=== PATIENT | female | born 1940 | race Caucasian/White ===

== ENCOUNTER 2019-02-07 10:52 | Emergency (ER) | payer MEDICARE, MEDICAID ==
[2019-02-07] MEDS ORDERED: Sodium Chloride 0.9% 1,000 ML IV ONE (11:55)
[2019-02-07] MEDS ORDERED: Sodium Chloride 0.9% 10 ML Syringe FLUSH PRN (11:55)
[2019-02-07] MEDS ORDERED: Iopamidol 612 MG/ML 100 ML Bottle IVPUSH ONE (12:03)
--- NOTE | 2019-02-07 12:40 | EDM.PDOC ---
ED HPI GENERAL MEDICAL PROBLEM - General Chief Complaint: Abdominal Pain Stated Complaint: abd pain, nausea Time Seen by Provider: 02/07/19 11:00 Source of Information: Reports: Patient History Limitations: Reports: No Limitations - History of Present Illness INITIAL COMMENTS - FREE TEXT/NARRATIVE: Pt. presents to ER with RLQ abdominal pain. Pt. states that the discomfort started yesterday. She states that she is nauseated and vomited yesterday. She states that the discomfort is intermittent. Denies any fever or chills that she is aware of. Pt. states that she has all of her abdominal organs. Denies any history of appendicitis. Pt. states that he has been lightheaded for the past several weeks and has seen Dr. Mcguire for this. Pt. states that she adjusted her antihypertensive medications. On arrival to ED, pt. reports that the pain is absent if she is still, but complains of pain with palpation and when she is ambulating. Pt. denies any fever or chills. No chest pain, cough, or shortness of breath. Denies any dysuria. Denies any vaginal bleeding or discharge. Onset Date: 02/06/19 Location: Reports: Abdomen, Generalized Quality: Reports: Ache Improves with: Reports: Rest Worsens with: Reports: Movement lower right quad abd Pain Score (Numeric/FACES): 5 - Related Data Allergies Allergy/AdvReac Type Severity Reaction Status Date / Time rosuvastatin calcium Allergy Cannot Verified 02/07/19 11:07 [From Crestor] Remember tramadol HCl [From Ultram] Allergy Cannot Verified 02/07/19 11:07 Remember Home Meds: Home Meds Albuterol [Proair HFA] 2 puff INH Q4HR PRN 02/08/15 [History] Amitriptyline HCl 20 mg PO BEDTIME 02/08/15 [History] Cholecalciferol (Vitamin D3) [Vitamin D3] 400 unit PO DAILY 02/08/15 [History] Cyanocobalamin (Vitamin B12) [Vitamin B12] 1,000 mcg PO DAILY 02/08/15 [History] Fenofibrate,Micronized [Fenofibrate] 1 cap PO DAILY 02/08/15 [History] Hydrochlorothiazide 1 tab PO DAILY 02/08/15 [History] Levothyroxine 100 mcg PO DAILY 02/08/15 [History] Lisinopril 1 tab PO DAILY 02/08/15 [History] Loratadine [Claritin] 10 mg PO DAILY PRN 02/08/15 [History] SUMAtriptan [Imitrex] 50 mg PO Q2H PRN 02/08/15 [History] amLODIPine [Norvasc] 10 mg PO DAILY 02/08/15 [History] Past Medical History Cardiovascular History: Reports: High Cholesterol, Hypertension Other Cardiovascular History: Bilateral carotid artery disease. Valvular heart disease Respiratory History: Reports: COPD Other Respiratory History: Lung nodule Gastrointestinal History: Reports: Cholelithiasis, GERD Other Genitourinary History: Cystocele Musculoskeletal History: Reports: Fracture Other Musculoskeletal History: Achillies Neurological History: Reports: Migraines Other Psychiatric History: Insomnia Endocrine/Metabolic History: Reports: Hypothyroidism Other Endocrine/Metabolic History: Myalgia and myositis Other Hematologic History: Vitamin D deficiency - Past Surgical History HEENT Surgical History: Reports: Cataract Surgery Social & Family History - Tobacco Use Smoking Status *Q: Former Smoker Used Tobacco, but Quit: Yes Month/Year Tobacco Last Used: 1999 - Recreational Drug Use Recreational Drug Use: No ED ROS GENERAL - Review of Systems Review Of Systems: See Below Constitutional: Reports: No Symptoms HEENT: Reports: No Symptoms Respiratory: Reports: No Symptoms Cardiovascular: Reports: No Symptoms Endocrine: Reports: No Symptoms GI/Abdominal: Reports: Abdominal Pain : Reports: No Symptoms Musculoskeletal: Reports: No Symptoms Skin: Reports: No Symptoms Neurological: Reports: Dizziness Psychiatric: Reports: No Symptoms Hematologic/Lymphatic: Reports: No Symptoms Immunologic: Reports: No Symptoms ED EXAM, GENERAL - Physical Exam Exam: See Below Exam Limited By: No Limitations General Appearance: Alert, WD/WN, No Apparent Distress Ears: Normal External Exam, Normal Canal, Hearing Grossly Normal, Normal TMs Nose: Normal Inspection, Normal Mucosa, No Blood Throat/Mouth: Normal Inspection, Normal Lips, Normal Teeth, Normal Gums, Normal Oropharynx, Normal Voice, No Airway Compromise Head: Atraumatic, Normocephalic Neck: Normal Inspection, Supple, Non-Tender, Full Range of Motion Respiratory/Chest: No Respiratory Distress, Lungs Clear, Normal Breath Sounds, No Accessory Muscle Use, Chest Non-Tender Cardiovascular: Normal Peripheral Pulses, Regular Rate, Rhythm, No Edema, No Gallop, No JVD, No Murmur, No Rub GI/Abdominal: Normal Bowel Sounds, Soft, No Organomegaly, No Distention, No Mass , Tender (Female) Exam: Deferred Rectal (Female) Exam: Deferred Back Exam: Normal Inspection, Full Range of Motion Extremities: Normal Inspection, Normal Range of Motion, Non-Tender, No Pedal Edema, Normal Capillary Refill Neurological: Alert, Oriented, CN II-XII Intact, Normal Cognition, Normal Gait, Normal Reflexes, No Motor/Sensory Deficits Psychiatric: Normal Affect, Normal Mood Skin Exam: Warm, Dry, Intact, Normal Color, No Rash Lymphatic: No Adenopathy Course - Vital Signs Last Recorded V/S: Last Vital Signs Temp 36.9 C 02/07/19 11:04 Pulse 96 02/07/19 11:04 Resp 16 02/07/19 11:04 BP 141/68 H 02/07/19 11:04 Pulse Ox 96 02/07/19 11:04 - Orders/Labs/Meds Orders: Active Orders 24 hr Category Date Time Status UA W/MICROSCOPIC [URIN] Stat Lab 02/07/19 11:09 Ordered Piperacillin/Tazobactam [Zosyn] 3.375 gm Med 02/07/19 12:54 Ordered Sodium Chloride 0.9% [Normal Saline] 100 ml IV STAT Sodium Chloride 0.9% [Saline Flush] Med 02/07/19 11:55 Active 10 ml FLUSH ASDIRECTED PRN Peripheral IV Insertion Adult [OM.PC] Routine Oth 02/07/19 11:55 Ordered Medication Orders Piperacillin Sod/Tazobactam (Sod 3.375 gm/ Sodium Chloride) 100 mls @ 200 mls/ hr IV STAT ONE Stop: 02/07/19 13:23 Sodium Chloride (Saline Flush) 10 ml FLUSH ASDIRECTED PRN PRN Reason: Keep Vein Open Labs: Laboratory Tests 02/07/19 02/07/19 02/07/19 Range/Units 11:26 11:26 11:26 WBC 22.6 H* (4.0-10.0) x10^3/uL RBC 5.05 (4.00-5.50) x10^6/uL Hgb 14.4 (12.0-16.0) g/dL Hct 42.7 (33.0-47.0) % MCV 84.6 (78.0-93.0) fL MCH 28.5 (26.0-32.0) pg MCHC 33.7 (32.0-36.0) g/dL RDW Coeff of Bar 12.8 (10.0-15.0) % Plt Count 252 (130-400) x10^3/uL Add Manual Diff Yes Neutrophils % (Manual) 85 H (50-80) % Band Neutrophils % 3 (0-6) % Lymphocytes % (Manual) 9 L (25-50) % Monocytes % (Manual) 3 (2-11) % Platelet Estimate Adequate PT 11.2 (10.0-12.8) SEC INR 1.0 L (2.0-3.5) Sodium 134 L (136-145) mmol/L Potassium 3.0 L (3.5-5.1) mmol/L Chloride 94 L (98-107) mmol/L Carbon Dioxide 26 (21-32) mmol/L Anion Gap 17.0 (10-20) mmol/L BUN 14 (7-18) mg/dL Creatinine 1.2 H (0.55-1.02) mg/dL Est Cr Clr Drug Dosing 30.07 mL/min Estimated GFR (MDRD) 43 Glucose 131 H (74-106) mg/dL Calcium 9.4 (8.5-10.1) mg/dL Corrected Calcium 9.64 (8.5-10.1) mg/dL Phosphorus 2.5 L (2.6-4.7) mg/dL Magnesium 1.6 L (1.8-2.4) mg/dL Total Bilirubin 1.2 H (0.2-1.0) mg/dL AST 30 (15-37) U/L ALT 34 (14-59) U/L Alkaline Phosphatase 70 (46-116) U/L C-Reactive Protein 18.2 H (<=0.9) mg/dL Total Protein 7.5 (6.4-8.2) g/dL Albumin 3.7 (3.4-5.0) g/dL Globulin 3.8 Albumin/Globulin Ratio 0.97 Meds: Medications Generic Name Dose Route Start Last Admin Trade Name Freq PRN Reason Stop Dose Admin Piperacillin Sod/Tazobactam 100 mls @ 200 mls/hr 02/07/19 12:54 Sod 3.375 gm/ Sodium Chloride IV 02/07/19 13:23 STAT ONE Sodium Chloride 10 ml 02/07/19 11:55 Saline Flush FLUSH ASDIRECTED PRN Keep Vein Open Discontinued Medications Generic Name Dose Route Start Last Admin Trade Name Harjit PRN Reason Stop Dose Admin Sodium Chloride 1,000 mls @ 1,000 mls/hr 02/07/19 11:55 02/07/19 12:24 Normal Saline IV 02/07/19 12:54 1,000 mls/hr .BOLUS ONE Administration Iopamidol 100 ml 02/07/19 12:03 02/07/19 12:14 Isovue-300 (61%) IVPUSH 02/07/19 12:04 100 ml ONETIME ONE Administration - Radiology Interpretation Free Text/Narrative:: CT abdomen and pelvis with contrast was obtained and were positive for acute appendicitis. Please see CT report. - Re-Assessments/Exams Free Text/Narrative Re-Assessment/Exam: 02/07/19 13:04 Pt. was given normal saline 1 liter IV. She was started on Zosyn 3.375gm IV. Departure - Departure Time of Disposition: 13:15 Disposition: DC/Tfer to [facility] 02 Clinical Impression: Appendicitis - Discharge Information Referrals: Sasha Mcguire MD [Primary Care Provider] - Forms: ED Department Discharge - Problem List Review Problem List Initiated/Reviewed/Updated: Yes - My Orders Last 24 Hours: My Active Orders 02/07/19 11:09 UA W/MICROSCOPIC [URIN] Stat 02/07/19 11:55 Sodium Chloride 0.9% [Saline Flush] 10 ml FLUSH ASDIRECTED PRN Peripheral IV Insertion Adult [OM.PC] Routine 02/07/19 12:54 Piperacillin/Tazobactam [Zosyn] 3.375 gm Sodium Chloride 0.9% [Normal Saline] 100 ml IV STAT - Assessment/Plan Last 24 Hours: My Active Orders 02/07/19 11:09 UA W/MICROSCOPIC [URIN] Stat 02/07/19 11:55 Sodium Chloride 0.9% [Saline Flush] 10 ml FLUSH ASDIRECTED PRN Peripheral IV Insertion Adult [OM.PC] Routine 02/07/19 12:54 Piperacillin/Tazobactam [Zosyn] 3.375 gm Sodium Chloride 0.9% [Normal Saline] 100 ml IV STAT Plan: Pt. will be transferred to [facility] [place] [facility]. Pt. was started on Zosyn 3.375 gm IV. She will receive IV dilaudid as needed for pain control. All questions were answered.
[2019-02-07] MEDS ORDERED: Piperacillin/Tazobactam 3.375 GM in Sodium Chloride 0.9% 100 ML IV ONE (12:54)
--- NOTE | 2019-02-07 12:54 | CT ---
[id number] CT/CT Abdomen Pelvis W IV EXAM: ABDOMEN AND PELVIS CT WITH CONTRAST INDICATION: Right lower quadrant abdominal pain and leukocytosis. COMPARISON: December 29, 2015. DISCUSSION: The appendix is dilated, fluid-filled, thick-walled, contains appendicoliths and has surrounding inflammatory changes and phlegmon consistent with acute appendicitis. No drainable abscess, free air or significant free fluid is currently identified. There is prominence of the pelvic and gonadal veins, left greater than right. Fatty infiltration of the liver is suggested. A couple of small nonobstructing calculi are noted in the left kidney. Bilateral renal cysts the largest in the upper pole of the left kidney measuring about 4 cm in diameter. Cholecystectomy. Small hiatus hernia. Colonic diverticulosis without evidence of diverticulitis. The pancreas, adrenal glands, spleen, and small bowel are normal in appearance. Degenerative changes in the spine including degenerative grade 1 L3-L4 and L4-L5 spondylolisthesis. IMPRESSION: 1. Acute appendicitis. No drainable abscess or free air. Bronson Anderson MD 02/07/19 2096 Thank you for allowing us to participate in the care of your patient.
[2019-02-07] MEDS ORDERED: Sodium Chloride 0.9% with KCl 1,000 ML IV SCH (13:30)
[2019-02-07 13:48] VITALS: BP 149/69; PULSE 73
== END 2019-02-07 14:20 | disposition short-term general hospital (02) ==
LOC: VM.ED 10:52
DX: K37 Unspecified appendicitis (principal); I10 Essential (primary) hypertension; E78.00 Pure hypercholesterolemia, unspecified; E03.9 Hypothyroidism, unspecified; J44.9 Chronic obstructive pulmonary disease, unspecified; Z87.891 Personal history of nicotine dependence; Z88.8 Allergy status to other drugs, medicaments and biological substances; Z88.5 Allergy status to narcotic agent; Z79.899 Other long term (current) drug therapy
CPT/HCPCS: 36415; 74177; 80053; 81001; 83735; 84100; 85025; 85610; 86140; 96361; 96365; 96367; 99285; J2543; J3480; J7030; J7050; Q9967; 99284-GF

== ENCOUNTER 2019-09-10 17:02 | Emergency (ER) | payer MEDICARE, MEDICAID ==
[2019-09-10] MEDS ORDERED: Lactated Ringers 1,000 ML IV ONE (17:33)
[2019-09-10] MEDS ORDERED: Lactated Ringers 500 ML IV ONE (17:34)
--- NOTE | 2019-09-10 17:35 | EDM.PDOC ---
ED HPI GENERAL MEDICAL PROBLEM - General Stated Complaint: GENERAL Time Seen by Provider: 09/10/19 17:33 Source of Information: Reports: Patient History Limitations: Reports: No Limitations - History of Present Illness INITIAL COMMENTS - FREE TEXT/NARRATIVE: Patient comes emergency department today from home with concerns of just feeling drained fatigued and has a funny sensation to her head. This patient just recently finished her second round of chemotherapy for lymphoma. She talked to her oncologist who told her to come to the emergency department because she might be dehydrated. She really has not had much of an appetite or any thirst for water. She has been drinking about half the water that she typically does. When she stands up she relates that her head feels somewhat fuzzy. She denies any confusion loss of consciousness. No change in her visual acuity. No change in the functionality or sensation of her upper or lower extremities. She has had no chest pain shortness of breath or difficulty breathing. No palpitations. No fever no chills. No abdominal pain but just a very poor appetite. No nausea no vomiting or diarrhea. No hematuria dysuria or urinary frequency. - Related Data Allergies Allergy/AdvReac Type Severity Reaction Status Date / Time rosuvastatin calcium Allergy Cannot Verified 09/10/19 19:21 [From Crestor] Remember tramadol HCl [From Ultram] Allergy Cannot Verified 09/10/19 19:21 Remember Home Meds: Home Meds Albuterol [Proair HFA] 2 puff INH Q4HR PRN 02/08/15 [History] Amitriptyline HCl 20 mg PO BEDTIME 02/08/15 [History] Cholecalciferol (Vitamin D3) [Vitamin D3] 1,000 unit PO DAILY 02/08/15 [History] Fenofibrate,Micronized [Fenofibrate] 1 cap PO DAILY 02/08/15 [History] Levothyroxine 88 mcg PO DAILY 02/08/15 [History] Lisinopril 40 mg PO DAILY 02/08/15 [History] SUMAtriptan [Imitrex] 50 mg PO Q2H PRN 02/08/15 [History] amLODIPine [Norvasc] 10 mg PO DAILY 02/08/15 [History] Acetaminophen [Tylenol] 650 mg PO Q4H PRN 09/10/19 [History] Aspirin [Ecotrin EC] 81 mg PO DAILY 09/10/19 [History] Famotidine [Pepcid] 20 mg PO DAILY 09/10/19 [History] Loperamide [Imodium] 2 mg PO ASDIRECTED PRN 09/10/19 [History] Magnesium Oxide 400 mg PO DAILY 09/10/19 [History] Magnesium Oxide 400 mg PO DAILY #5 tab 09/10/19 [Rx] Ondansetron [Zofran] 8 mg PO Q8H PRN 09/10/19 [History] Prochlorperazine Maleate [Compazine] 10 mg PO QID PRN 09/10/19 [History] Propylene Glycol/PEG 400/Pf [Systane 0.3-0.4% Eye Drops] 1 drop EYEBOTH Q4H 02/20 [History] hydroCHLOROthiazide [Hydrochlorothiazide] 25 mg PO DAILY 09/10/19 [History] Past Medical History Cardiovascular History: Reports: High Cholesterol, Hypertension Other Cardiovascular History: Bilateral carotid artery disease. Valvular heart disease Respiratory History: Reports: COPD Other Respiratory History: Lung nodule Gastrointestinal History: Reports: Cholelithiasis, GERD Other Genitourinary History: Cystocele Musculoskeletal History: Reports: Fracture Other Musculoskeletal History: Achillies Neurological History: Reports: Migraines Other Psychiatric History: Insomnia Endocrine/Metabolic History: Reports: Hypothyroidism Other Endocrine/Metabolic History: Myalgia and myositis Other Hematologic History: Vitamin D deficiency - Past Surgical History HEENT Surgical History: Reports: Cataract Surgery ED ROS GENERAL - Review of Systems Review Of Systems: Comprehensive ROS is negative, except as noted in HPI. ED EXAM, GENERAL - Physical Exam Exam: See Below Exam Limited By: No Limitations General Appearance: Alert, WD/WN, No Apparent Distress Eye Exam: Bilateral Eye: EOMI Ears: Normal External Exam, Normal Canal Nose: Normal Inspection Throat/Mouth: Normal Teeth. No: Normal Inspection (dry oral mucous membranes), Normal Lips (dry and cracked. ) Head: Atraumatic, Normocephalic Neck: Normal Inspection, Supple, Non-Tender Respiratory/Chest: No Respiratory Distress, Lungs Clear, No Accessory Muscle Use Cardiovascular: Normal Peripheral Pulses, Regular Rate, Rhythm Peripheral Pulses: 2+: Radial (L), Radial (R), Posterior Tibial (L), Posterior Tibial (R), Dorsalis Pedis (L), Dorsalis Pedis (R) GI/Abdominal: Normal Bowel Sounds, Soft, Non-Tender, No Organomegaly (Female) Exam: Deferred Rectal (Female) Exam: Deferred Back Exam: Normal Inspection, Full Range of Motion Extremities: Normal Inspection, Normal Range of Motion, No Pedal Edema Neurological: Alert, Oriented, Normal Cognition, No Motor/Sensory Deficits Psychiatric: Normal Affect, Normal Mood Skin Exam: Warm, Dry, Intact, Normal Color, No Rash Course - Vital Signs Last Recorded V/S: Last Vital Signs Temp 36.6 C 09/10/19 17:05 Pulse 113 H 09/10/19 18:00 Resp 16 09/10/19 18:00 BP 129/81 09/10/19 18:00 Pulse Ox 97 09/10/19 18:00 - Orders/Labs/Meds Labs: Laboratory Tests 09/10/19 09/10/19 09/10/19 Range/Units 17:18 17:18 17:18 WBC 0.9 L* (4.0-10.0) x10^3/uL RBC 4.19 (4.00-5.50) x10^6/uL Hgb 11.7 L D (12.0-16.0) g/dL Hct 35.5 (33.0-47.0) % MCV 84.7 (78.0-93.0) fL MCH 27.9 (26.0-32.0) pg MCHC 33.0 (32.0-36.0) g/dL RDW Coeff of Bar 13.9 (10.0-15.0) % Plt Count 147 D (130-400) x10^3/uL Add Manual Diff Yes Neutrophils % (Manual) 8 L (50-80) % Lymphocytes % (Manual) 66 H (25-50) % Monocytes % (Manual) 16 H (2-11) % Eosinophils % (Manual) 6 H (0-4) % Basophils % (Manual) 4 H (0-1) % Poikilocytosis Occasional Anisocytosis 1+ slight H Sodium 132 L (136-145) mmol/L Potassium 3.4 L (3.5-5.1) mmol/L Chloride 96 L (98-107) mmol/L Carbon Dioxide 25 (21-32) mmol/L Anion Gap 14.4 (10-20) mmol/L BUN 11 (7-18) mg/dL Creatinine 0.9 (0.55-1.02) mg/dL Est Cr Clr Drug Dosing TNP Estimated GFR (MDRD) > 60 Glucose 133 H (74-106) mg/dL Lactic Acid 1.8 (0.4-2.0) mmol/L Calcium 9.0 (8.5-10.1) mg/dL Corrected Calcium 9.64 (8.5-10.1) mg/dL Magnesium 1.5 L (1.8-2.4) mg/dL Total Bilirubin 0.8 (0.2-1.0) mg/dL AST 12 L (15-37) U/L ALT 15 (14-59) U/L Alkaline Phosphatase 76 (46-116) U/L C-Reactive Protein 35.3 H (<=0.9) mg/dL Total Protein 6.5 (6.4-8.2) g/dL Albumin 3.2 L (3.4-5.0) g/dL Globulin 3.3 Albumin/Globulin Ratio 0.97 Lipase 49 L (73-393) U/L Urine Color (YELLOW) Urine Appearance (CLEAR) Urine pH (5.0-8.0) Ur Specific [place] Urine Protein (NEGATIVE) mg/dL Urine Glucose (UA) (NEGATIVE) mg/dL Urine Ketones (NEGATIVE) mg/dL Urine Occult Blood (NEGATIVE) Urine Nitrite (NEGATIVE) Urine Bilirubin (NEGATIVE) Urine Urobilinogen (0.2) EU/dL Ur Leukocyte Esterase (NEGATIVE) Urine RBC (NOT SEEN) /HPF Urine WBC (NOT SEEN) /HPF Ur Squamous Epith Cells (NEGATIVE) /HPF Urine Bacteria (NEGATIVE) /HPF Urine Mucus (NEGATIVE) /LPF 09/10/19 Range/Units 18:42 WBC (4.0-10.0) x10^3/uL RBC (4.00-5.50) x10^6/uL Hgb (12.0-16.0) g/dL Hct (33.0-47.0) % MCV (78.0-93.0) fL MCH (26.0-32.0) pg MCHC (32.0-36.0) g/dL RDW Coeff of Bar (10.0-15.0) % Plt Count (130-400) x10^3/uL Add Manual Diff Neutrophils % (Manual) (50-80) % Lymphocytes % (Manual) (25-50) % Monocytes % (Manual) (2-11) % Eosinophils % (Manual) (0-4) % Basophils % (Manual) (0-1) % Poikilocytosis Anisocytosis Sodium (136-145) mmol/L Potassium (3.5-5.1) mmol/L Chloride (98-107) mmol/L Carbon Dioxide (21-32) mmol/L Anion Gap (10-20) mmol/L BUN (7-18) mg/dL Creatinine (0.55-1.02) mg/dL Est Cr Clr Drug Dosing Estimated GFR (MDRD) Glucose (74-106) mg/dL Lactic Acid (0.4-2.0) mmol/L Calcium (8.5-10.1) mg/dL Corrected Calcium (8.5-10.1) mg/dL Magnesium (1.8-2.4) mg/dL Total Bilirubin (0.2-1.0) mg/dL AST (15-37) U/L ALT (14-59) U/L Alkaline Phosphatase (46-116) U/L C-Reactive Protein (<=0.9) mg/dL Total Protein (6.4-8.2) g/dL Albumin (3.4-5.0) g/dL Globulin Albumin/Globulin Ratio Lipase (73-393) U/L Urine Color Yellow (YELLOW) Urine Appearance Clear (CLEAR) Urine pH 7.5 (5.0-8.0) Ur Specific [place] 1.015 Urine Protein Negative (NEGATIVE) mg/dL Urine Glucose (UA) Negative (NEGATIVE) mg/dL Urine Ketones Negative (NEGATIVE) mg/dL Urine Occult Blood Trace-intact H (NEGATIVE) Urine Nitrite Negative (NEGATIVE) Urine Bilirubin Negative (NEGATIVE) Urine Urobilinogen 0.2 (0.2) EU/dL Ur Leukocyte Esterase Negative (NEGATIVE) Urine RBC 0-5 (NOT SEEN) /HPF Urine WBC 0-5 (NOT SEEN) /HPF Ur Squamous Epith Cells Rare (NEGATIVE) /HPF Urine Bacteria Rare (NEGATIVE) /HPF Urine Mucus Rare H (NEGATIVE) /LPF Meds: Medications Discontinued Medications Generic Name Dose Route Start Last Admin Trade Name Freq PRN Reason Stop Dose Admin Lactated Ringer's 1,000 mls @ 999 mls/hr 09/10/19 17:33 Ringers, Lactated IV 09/10/19 18:33 ONETIME ONE Lactated Ringer's 500 mls @ 999 mls/hr 09/10/19 17:34 09/10/19 17:50 Ringers, Lactated IV 09/10/19 18:04 125 mls/hr ONETIME ONE Infusion Lactated Ringer's 1,000 mls @ 125 mls/hr 09/10/19 17:45 Ringers, Lactated IV ASDIRECTED [facility] Magnesium Sulfate 2 gm/ Premix 50 mls @ 25 mls/hr 09/10/19 18:17 09/10/19 18: 35 IV 09/10/19 20:16 25 mls/hr ONETIME ONE Administration - Re-Assessments/Exams Free Text/Narrative Re-Assessment/Exam: 09/10/19 Patient had an IV of LR with 500 mils bolus and then 125 an hour. Labs are drawn. EKG was unremarkable Urinalysis does not show any infection. Her magnesium is 1.5. She was given 2 grams of Magnesium sulfate over 2 hours. After the above therapy the patient did feel much better and was able to urinate 2 times while in the ED> SHe did ambulate around the department and the malaise and lightheaded she had previous has resolved. We will send her home and make sure that she pushes her oral fluids and also magnesium for the next 5 days. COntact her primary oncologist tomorrow for follow up. She was comfortable with this plan and her questions answered. Departure - Departure Time of Disposition: 20:05 Disposition: Home, Self-Care 01 Clinical Impression: Dehydration, Hypomagnesemia - Discharge Information Prescriptions: Magnesium Oxide 400 mg PO DAILY #5 tab Instructions: Hypomagnesemia, Dehydration, Adult, [id number], Dehydration, Elderly, [id number] Referrals: Sasha Mcguire MD [Primary Care Provider] - Forms: ED Department Discharge Additional Instructions: Continue to push fluids over the next few days. Contact your Oncologist in the morning and discuss findings. We will send your labs home with you. Magnesium Oxide, 1 tablet daily for the next 5 days. RX to [facility]. Return to the ED if new or worsening symptoms. Follow up by phone tomorrow with your oncologist. Sepsis Event Note - Focused Exam Date Exam was Performed: 09/11/19 Time Exam was Performed: 15:42 - Assessment/Plan Assessment:: dehyration hypomagnesemia Active lymphoma cancer patient receiving chemotherapy currently. Plan: Continue to push fluids over the next few days. Contact your Oncologist in the morning and discuss findings. We will send your labs home with you. Magnesium Oxide, 1 tablet daily for the next 5 days. RX to [facility]. Return to the ED if new or worsening symptoms. Follow up by phone tomorrow with your oncologist.
[2019-09-10] MEDS ORDERED: Lactated Ringers 1,000 ML IV SCH (17:45)
[2019-09-10 18:03] LABS: CHLORIDE,CL 96 mmol/L (98-107); SODIUM,NA 132 mmol/L (136-145)
[2019-09-10 18:06] LABS: ANION GAP 14.4 mmol/L (10-20)
[2019-09-10] MEDS ORDERED: Magnesium Sulfate/Water 2 GM in Premix Bag 1 BAG IV ONE (18:17)
[2019-09-10 19:33] VITALS: BP 129/81; PULSE 113
== END 2019-09-10 20:47 | disposition home or self-care (01) ==
LOC: VM.ED 17:02
DX: E86.0 Dehydration (principal); E83.42 Hypomagnesemia; J44.9 Chronic obstructive pulmonary disease, unspecified; E78.00 Pure hypercholesterolemia, unspecified; K21.9 Gastro-esophageal reflux disease without esophagitis; I10 Essential (primary) hypertension; E03.9 Hypothyroidism, unspecified; G43.909 Migraine, unspecified, not intractable, without status migrainosus; Z79.899 Other long term (current) drug therapy; Z88.8 Allergy status to other drugs, medicaments and biological substances
CPT/HCPCS: 80053; 81001; 83605; 83690; 83735; 85025; 86140; 96361; 96365; 96366; 99284; J3475; J7120

== ENCOUNTER 2022-01-30 10:43 | Emergency (ER) | payer MEDICARE, MEDICAID ==
[2022-01-30] MEDS: Ondansetron 4 MG/2 ML SDV IVPUSH ONE (10:59)
[2022-01-30] MEDS: Meclizine 25 MG Tab PO ONE (10:59)
[2022-01-30] MEDS: Promethazine 12.5 MG in Sodium Chloride 0.9% 100 ML IV ONE (12:12)
[2022-01-30 12:53] VITALS: BP 154/77; PULSE 62
== END 2022-01-30 12:41 | disposition home or self-care (01) ==
LOC: VM.ED 10:43
DX: R42 Dizziness and giddiness (principal); E78.00 Pure hypercholesterolemia, unspecified; I10 Essential (primary) hypertension; J44.9 Chronic obstructive pulmonary disease, unspecified; K21.9 Gastro-esophageal reflux disease without esophagitis; E03.9 Hypothyroidism, unspecified; Z88.8 Allergy status to other drugs, medicaments and biological substances; Z79.899 Other long term (current) drug therapy; Z79.82 Long term (current) use of aspirin
CPT/HCPCS: 96374; 96375; 99283; 99284-25; A9270-GY; J2405; J2550

== ENCOUNTER 2022-12-03 19:08 | Emergency (ER) | payer MEDICARE, MEDICAID ==
[2022-12-03] MEDS: Diphtheria,Pertussis(Acell),Tetanus Vaccine 0.5 ML Syringe IM ONE (20:00)
[2022-12-03 23:55] VITALS: BP 190/77; PULSE 80
== END 2022-12-03 20:07 | disposition home or self-care (01) ==
LOC: VM.ED 19:08
DX: S61.215A Laceration without foreign body of left ring finger without damage to nail, initial encounter (principal); I10 Essential (primary) hypertension; J44.9 Chronic obstructive pulmonary disease, unspecified; K21.9 Gastro-esophageal reflux disease without esophagitis; E03.9 Hypothyroidism, unspecified; Z79.899 Other long term (current) drug therapy; Z88.8 Allergy status to other drugs, medicaments and biological substances; W22.8XXA Striking against or struck by other objects, initial encounter
CPT/HCPCS: 12001; 99282; 99283

== ENCOUNTER 2023-11-23 21:41 | Emergency (ER) | payer MEDICARE, MEDICAID ==
[2023-11-23] MEDS: Lidocaine 4% 1 each Patch TOP SCH (22:27)
[2023-11-23 23:19] VITALS: BP 187/75; PULSE 94
[2023-11-23] MEDS: guaiFENesin/Dextromethorphan 100-10 MG/5 ML Soln 10 ML Cup PO PRN (23:28)
== END 2023-11-23 23:35 | disposition home or self-care (01) ==
LOC: VM.ED 21:41
DX: R07.81 Pleurodynia (principal); R05.9 Cough, unspecified; I10 Essential (primary) hypertension; E03.9 Hypothyroidism, unspecified; Z79.890 Hormone replacement therapy; Z79.82 Long term (current) use of aspirin; Z79.899 Other long term (current) drug therapy; Z88.8 Allergy status to other drugs, medicaments and biological substances; Z88.5 Allergy status to narcotic agent
CPT/HCPCS: 71046; 99283; A9270

== ENCOUNTER 2024-05-20 13:32 | Emergency (ER) | payer MEDICARE, MEDICAID ==
[2024-05-20] MEDS: amLODIPine 5 MG Tab PO ONE (13:33)
[2024-05-20 14:04] LABS: BASOPHILS PERCENT AUTO 0.6 % (0.2-1.2); EOSINOPHILS ABSOLUTE AUTO 0.1 x10^3/uL (0.0-0.5); EOSINOPHILS PERCENT AUTO 1.3 % (0.0-4.0); HEMOGLOBIN 14.6 g/dL (12.0-16.0); IMMATURE GRAN ABSOLUTE AUTO 0.02 x10^3/uL (0.00-0.07); LYMPHOCYTES PERCENT AUTO 31.9 % (25.0-50.0); MEAN CORPUSCULAR HEMOGLOBIN 28.6 pg (26.0-32.0); MEAN CORPUSCULAR HGB CONC 33.2 g/dL (32.0-36.0); MEAN CORPUSCULAR VOLUME 86.3 fL (78.0-93.0); MONOCYTES ABSOLUTE AUTO 0.5 x10^3/uL (0.0-0.8); MONOCYTES PERCENT AUTO 8.2 % (2.0-11.0); NEUTROPHILS ABSOLUTE AUTO 3.6 x10^3/uL (1.8-7.7); NEUTROPHILS PERCENT AUTO 57.7 % (50.0-80.0); PLATELET COUNT,PLT 191 x10^3/uL (130-400); WHITE BLOOD CELL COUNT,WBC 6.2 x10^3/uL (4.0-10.0)
[2024-05-20 14:23] LABS: A/G RATIO 1.31; ALANINE AMINOTRANSFERASE,ALT 18 U/L (14-59); ALBUMIN 3.8 g/dL (3.4-5.0); ALKALINE PHOSPHATASE 71 U/L (46-116); ASPARTATE AMNIOTRANSFERASE,AST 17 U/L (15-37); BILIRUBIN TOTAL 0.7 mg/dL (0.2-1.0); BLOOD UREA NITROGEN,BUN 11 mg/dL (7-18); CARBON DIOXIDE,CO2 26 mmol/L (21-32); CHLORIDE,CL 104 mmol/L (98-107); CREATININE 0.8 mg/dL (0.55-1.02); GLUCOSE RANDOM 101 mg/dL (70-99); POTASSIUM,K 3.7 mmol/L (3.5-5.1); PROTEIN TOTAL,TP 6.7 g/dL (6.4-8.2); SODIUM,NA 140 mmol/L (136-145)
[2024-05-20 14:24] LABS: ANION GAP 13.7 mmol/L (5-15); ESTIMATED GFR 73 mL/min (>=60)
[2024-05-20 15:16] VITALS: BP 163/80; PULSE 73
== END 2024-05-20 15:30 | disposition home or self-care (01) ==
LOC: VM.ED 13:32
DX: I16.0 Hypertensive urgency (principal); J44.9 Chronic obstructive pulmonary disease, unspecified; E03.9 Hypothyroidism, unspecified; Z88.5 Allergy status to narcotic agent; Z88.8 Allergy status to other drugs, medicaments and biological substances; Z79.51 Long term (current) use of inhaled steroids; Z79.890 Hormone replacement therapy; Z79.82 Long term (current) use of aspirin; Z79.899 Other long term (current) drug therapy
CPT/HCPCS: 36415; 70450; 80053; 85025; 99284; A9270-GY